=== PATIENT | female | born 1995 ===

== ENCOUNTER → 2022-01-25 22:03 | Observation (INO) ==
[2022-01-25 18:48] LABS: Bacteria,Urine Few per hpf (None-Few); Bilirubin,Urine Negative (Negative); Blood,Urine Negative (Negative); Budding Yeast,Urine Few per hpf (None Seen); Clarity,Urine Turbid (Clear); Color,Urine Yellow (Yellow); Glucose,Urine (UA) Normal (Normal); Ketones,Urine Negative (Negative); Leukocyte Esterase,Urine Large (Negative); Mucus,Urine Many per lpf (None-Few); Nitrite,Urine Negative (Negative); Protein,Urine 30 mg/dL (Neg-Trace); RBC,Urine 15-30 per hpf (0-3); Specific Gravity,Urine 1.022 (1.010-1.025); Squamous Epithelial Cell,Urine Moderate per hpf (None-Few); Urobilinogen,Urine Normal (Normal); WBC,Urine TNTC per hpf (0-3)
[~2022-01-25 22:03] MED LIST: Ringers Solution, Lactated 1,000 ML IVC ONE; Ringers Solution, Lactated 1,000 ML ONE; cefTRIAXone 1,000 MG in 0.9 % Sodium Chloride Mini Bag 100 ML IVPB ONE; cefTRIAXone 1,000 MG in Water for inj. (sterile) 10 ML IVP ONE
== END | disposition home or self-care (01) ==
LOC: 1NENULAB
PROVIDERS: ADMIT Student in an Organized Health Care Education/Training Program; ATTEND Student in an Organized Health Care Education/Training Program

== ENCOUNTER 2022-02-24 00:37 | Inpatient (IN) ==
[~2022-02-24 00:37] MED LIST changes: +*HR* Nalbuphine 10 MG/ML AMPUL IV PRN; +Famotidine 20 MG/2 ML VIAL IVP PRN; +Lidocaine 1% 20 ML MDV INFILT PRN; +Metoclopramide 10 MG/2 ML VIAL IVP PRN; +Naloxone 0.4 MG/ML INJ IVP PRN; -Ringers Solution, Lactated 1,000 ML IVC ONE; -Ringers Solution, Lactated 1,000 ML ONE; -cefTRIAXone 1,000 MG in 0.9 % Sodium Chloride Mini Bag 100 ML IVPB ONE; -cefTRIAXone 1,000 MG in Water for inj. (sterile) 10 ML IVP ONE
[2022-02-24] MEDS ORDERED: Ringers Solution, Lactated 1,000 ML IVC SCH ×2 (00:45→07:15)
[2022-02-24] MEDS ORDERED: Penicillin G Potassium 5,000,000 UNIT in 0.9 % Sodium Chloride Mini Bag 100 ML IVPB ONE (00:46)
[2022-02-24 01:33] LABS: Basophils % 0.2 %; Eosinophils # 0.1 K/mcL (0.0-0.6); Eosinophils % 1.2 %; Hematocrit 33.4 % (35.3-44.9); Hemoglobin 11.1 g/dL (11.5-15.4); Immature Granulocytes % 0.3 % (0-4); Lymphocytes # 2.8 K/mcL (0.6-4.6); Lymphocytes % 26.2 %; Mean Corpuscular HGB Conc 33.2 g/dL (31.6-35.5); Mean Corpuscular Hemoglobin 31.2 pg (28.0-33.3); Mean Corpuscular Volume 93.8 fL (83.0-100.0); Mean Platelet Volume 10.2 fL (9.4-12.4); Monocytes # 0.7 K/mcL (0.0-1.3); Monocytes % 6.1 %; Neutrophils # 7.1 K/mcL (1.6-8.9); Platelet Count 279 K/mcL (140-400); Red Blood Count 3.56 M/mcL (3.82-4.97); White Blood Count 10.8 K/mcL (4.3-11.1)
[2022-02-24 01:58] LABS: Prothrombin Time 11.1 Seconds (9.4-12.1)
[2022-02-24 02:01] LABS: Activated Partial Thrombo Time 36.4 Seconds (26.0-36.0)
[2022-02-24 02:48] LABS: Amphetamine Screen,Urine Negative ng/mL (Cutoff=1000); Barbiturate Screen,Urine Negative ng/mL (Cutoff=200); Benzodiazepines Screen,Urine Negative ng/mL (Cutoff=200); Cannabinoid Screen,Urine Positive ng/mL (Cutoff = 50); Cocaine Screen,Urine Negative ng/mL (Cutoff= 300); Opiate Screen,Urine Negative ng/mL (Cutoff=300); Phencyclidine Screen,Urine Negative ng/mL (Cutoff=25)
[2022-02-24] MEDS: Penicillin G Potassium 2,500,000 UNIT/105 ML MLS IVPB SCH ×2 (05:10→09:07)
[2022-02-24] MEDS ORDERED: Oxytocin 30 UNIT/503 ML BAG IVC SCH (07:15)
[2022-02-24] MEDS ORDERED: SODIUM CHLORIDE 0.9% IVPB ONE (08:39)
[2022-02-24] MEDS ORDERED: DESMOPRESSIN ACETATE IVPB ONE (08:39)
[2022-02-24] MEDS ORDERED: 0.9 % Sodium Chloride 1,000 ML ONE (10:05)
[2022-02-24] MEDS ORDERED: *HR* Succinylcholine 200 MG/10 ML VIAL IVP ONE (10:24)
[2022-02-24] MEDS ORDERED: *HR* Propofol 200 MG/20 ML VIAL IVP ONE ×2 (10:24→10:35)
[2022-02-24] MEDS ORDERED: *HR* HYDROMORPHONE 2 MG/ML VIAL ONE (10:36)
[2022-02-24] MEDS ORDERED: Acetaminophen IV 1,000 MG/100 ML BAG IVPB ONE (10:43)
[2022-02-24] MEDS ORDERED: 0.9 % Sodium Chloride 250 ML ONE (11:26)
[2022-02-24] MEDS ORDERED: Ondansetron 4 MG/2 ML VIAL IVP PRN ×2 (11:51→14:17)
[2022-02-24] MEDS ORDERED: Naloxone 0.4 MG/ML INJ IVP PRN (11:51)
[2022-02-24] MEDS ORDERED: Promethazine 6.25 MG in Water for inj. (sterile) 20 ML IVPB PRN (11:51)
[2022-02-24] MEDS ORDERED: *HR* HYDROmorphone PF 0.5 MG/0.5 ML SYRINGE IVP PRN (11:51)
[2022-02-24] MEDS ORDERED: Metoclopramide 10 MG/2 ML VIAL IVP PRN (14:17)
[2022-02-24] MEDS ORDERED: Simethicone 80 MG TAB.CHEW PO PRN (14:17)
[2022-02-24] MEDS: metroNIDAZOLE 500 MG TABLET PO SCH ×2 (15:00→19:38)
[2022-02-24] MEDS: Ibuprofen 600 MG TABLET PO SCH ×2 (15:52→22:26)
[2022-02-24] MEDS: Acetaminophen 325 MG TABLET PO SCH ×2 (15:52→22:26)
[2022-02-24] MEDS: cefOXitin 2,000 MG in Water for inj. (sterile) 10 ML IVP SCH ×2 (15:53→23:49)
[2022-02-24] MEDS: *HR* OxyCODONE Immed Rel 5 MG TABLET PO PRN (17:51)
[2022-02-24 17:58] VITALS: O2SAT 98
[2022-02-25] MEDS: *HR* OxyCODONE Immed Rel 5 MG TABLET PO PRN ×2 (04:29→08:28)
[2022-02-25 04:32] LABS: Basophils % 0.2 %; Eosinophils # 0.1 K/mcL (0.0-0.6); Eosinophils % 0.4 %; Hematocrit 29.8 % (35.3-44.9); Hemoglobin 9.7 g/dL (11.5-15.4); Immature Granulocytes % 0.4 % (0-4); Lymphocytes # 1.8 K/mcL (0.6-4.6); Lymphocytes % 14.9 %; Mean Corpuscular HGB Conc 32.6 g/dL (31.6-35.5); Mean Corpuscular Volume 95.2 fL (83.0-100.0); Monocytes # 0.8 K/mcL (0.0-1.3); Monocytes % 6.8 %; Neutrophils # 9.5 K/mcL (1.6-8.9); Platelet Count 255 K/mcL (140-400); Red Blood Count 3.13 M/mcL (3.82-4.97); Red Cell Distribution Width 13.1 % (11.5-14.5); Segmented Neutrophils % 77.3 %; White Blood Count 12.3 K/mcL (4.3-11.1)
[2022-02-25] MEDS: Ibuprofen 600 MG TABLET PO SCH ×2 (06:36→07:28)
[2022-02-25] MEDS: Acetaminophen 325 MG TABLET PO SCH ×2 (06:37→07:28)
[2022-02-25] MEDS: metroNIDAZOLE 500 MG TABLET PO SCH (07:28)
[2022-02-25] MEDS: cefOXitin 2,000 MG in Water for inj. (sterile) 10 ML IVP SCH (07:29)
[2022-02-25 07:52] VITALS: BP 99/62; PULSE 57; TEMP 98.2
[2022-02-25] MEDS ORDERED: NON-FORMULARY MEDICATION 1 EACH EACH (Ferrous Sulfate 325 MG) PO SCH (09:00)
[2022-02-25] MEDS ORDERED: Prenatal Vit/FA 1 EACH TABLET PO SCH (09:00)
[2022-02-25] MEDS ORDERED: NON-FORMULARY MEDICATION 1 EACH EACH (Prenatal Caplet 1 TAB) PO SCH (09:00)
[2022-02-25 09:51] LABS: BUN/Creatinine Ratio 9 (6-26); Blood Urea Nitrogen 8 mg/dL (6-20); Calcium 8.4 mg/dL (8.6-10.3); Carbon Dioxide 23 mEq/L (23-29); Chloride 107 mEq/L (98-107); Glucose 103 mg/dL (70-105); Osmolality,Calculated 279 (280-300); Sodium 135 mEq/L (136-145); eGFR For African Americans > 60 (> 60); eGFR For Non-African Americans > 60 (> 60)
== END 2022-02-25 12:10 | disposition home or self-care (01) | DRG 540 ==
LOC: 1NENULAB → 1NENUOBS 13:54
PROVIDERS: ADMIT Advanced Practice Midwife; ATTEND Advanced Practice Midwife